=== PATIENT | female | born 1995 | race Two or more races ===

== ENCOUNTER 2018-05-23 20:42 | Emergency (ER) | payer MEDICAID ==
[~2018-05-23] VITALS: Ht 165.1 cm; Wt 68.5 kg
[2018-05-23 21:10] VITALS: BP 122/69
== END 2018-05-23 22:59 | disposition left against medical advice (07) ==
LOC: EDBD 20:42 → ER 20:42
DX: R10.9 Unspecified abdominal pain (principal); Z53.21 Procedure and treatment not carried out due to patient leaving prior to being seen by health care provider